=== PATIENT | male | born 1975 | race African-American/Black ===

== ENCOUNTER 2022-10-01 18:40 | Emergency (ER) | payer OTHER ==
[~2022-10-01] VITALS: Ht 165.1 cm; Wt 6.6 kg
[2022-10-01] MEDS ORDERED: IBUP-1493 PO (18:55)
[2022-10-01 19:15] VITALS: BP 121/64
[2022-10-01] MEDS ORDERED: OxyCODONE HCL 5 MG IR TABLET PO ONE (19:45)
[2022-10-01] MEDS ORDERED: OXYC5 PO (19:57)
== END 2022-10-01 20:22 | disposition still patient (30) ==
LOC: EMS 18:43
DX: M54.50 Low back pain, unspecified (principal); G89.29 Other chronic pain; Z98.890 Other specified postprocedural states; Z88.0 Allergy status to penicillin; Z88.8 Allergy status to other drugs, medicaments and biological substances
CPT/HCPCS: 99283

== ENCOUNTER 2024-11-20 18:37 | Emergency (ER) | payer OTHER ==
[~2024-11-20] VITALS: Ht 167.6 cm; Wt 59.1 kg
[~2024-11-20 18:37] MED LIST: IBUP-1493 PO; OXYC5 PO
[2024-11-20 18:56] VITALS: TEMP 98.2
[2024-11-20] MEDS: TraMADol HCL 50 MG TABLET PO ONE (23:11)
[2024-11-21 00:42] VITALS: BP 132/68; PULSE 66; RESP 18; O2SAT 100
[2024-11-21] MEDS: OxyCODONE HCL 5 MG IR TABLET PO ONE (01:18)
== END 2024-11-21 01:40 | disposition home or self-care (01) ==
LOC: EMS 18:37
DX: R07.81 Pleurodynia (principal); M54.50 Low back pain, unspecified; Z88.0 Allergy status to penicillin; Z88.6 Allergy status to analgesic agent
CPT/HCPCS: 71101; 72100; 99284; Z7502; Z7610